=== PATIENT | male | born 1985 | race Caucasian/White ===

== ENCOUNTER 2019-10-22 21:41 | Observation (INO) | payer OTHER ==
[~2019-10-22] VITALS: Ht 170.2 cm; Wt 93.2 kg
[2019-10-22] MEDS ORDERED: [UNRECOGNIZED DRUG - REMARK] (21:51)
[2019-10-22 22:24] LABS: BASOPHILS 0.3 % (0-2); EOSINOPHILS 2.6 % (0-7); HEMATOCRIT 37.1 % (42.0-54.0); HEMOGLOBIN 12.7 g/dL (13.5-17.5); IMMATURE GRANULOCYTES 0.1 % (0-5); LYMPHOCYTES 25.6 % (15-50); MCH 28.8 pg (26.0-34.0); MCHC 34.2 g/dL (31.0-37.0); MCV 84.1 fL (80.0-100.0); MONOCYTES 7.5 % (2-11); NEUTROPHILS 63.9 % (40-80); PLATELET COUNT 242 10x3/uL (130-400); RBC 4.41 10x6/uL (4.20-6.10); WBC 9.3 10x3/uL (4.8-10.8)
[2019-10-22 22:31] LABS: CALC OSMOLALITY 285 mosm/kg (275-300); CALCIUM 8.7 mg/dL (8.5-10.1); CARBON DIOXIDE 27.1 mmol/L (21.0-32.0); CHLORIDE - SERUM 106 mmol/L (98-107); GLUCOSE 130 mg/dL (74-106); POTASSIUM - SERUM 3.3 mmol/L (3.5-5.1); SODIUM 142 mmol/L (136-145); UREA NITROGEN 15 mg/dL (7-18); eGFR NON AFRICAN AMERICAN 90 mL/min (90-120)
[2019-10-22 22:36] LABS: ALBUMIN 3.8 g/dL (3.4-5.0); ALKALINE PHOSPHATASE 85 U/L (30-120); ALT (SGPT) 50 U/L (10-68); BILIRUBIN - TOTAL 0.39 mg/dL (0.2-1.3)
[2019-10-22 23:38] LABS: APTT 23.6 SECONDS (22.8-39.4); INR 0.98 (0.85-1.17); PROTIME 12.9 SECONDS (11.6-15.0)
[2019-10-23 02:06] LABS: BILIRUBIN NEGATIVE (NEGATIVE); GLUCOSE NEGATIVE (NEGATIVE); KETONE SMALL mg/dL (NEGATIVE); NITRITE NEGATIVE (NEGATIVE); SPECIFIC GRAVITY 1.025 (1.005-1.020); UROBILINOGEN NORMAL (NORMAL)
[2019-10-23 02:08] LABS: UDS - AMPHET NEGATIVE QUAL (NEGATIVE); UDS - BARB NEGATIVE QUAL (NEGATIVE); UDS - BENZO NEGATIVE QUAL (NEGATIVE); UDS - COCAINE NEGATIVE QUAL (NEGATIVE); UDS - OPIATE POSITIVE QUAL (NEGATIVE); UDS - PCP NEGATIVE QUAL (NEGATIVE); UDS - THC NEGATIVE QUAL (NEGATIVE)
--- NOTE | 2019-10-23 03:05 | NUR ---
RECIEVED TO FLOOR, ACCOMPANIED BY STAFF AND COWORKER. A&O X 4, AMBULATES INDEPENDENTLY. REPORTS PAIN OF 8/10. VS STABLE. DENIES NEEDS AT THIS TIME, WILL CONTINUE TO MONITOR.
[2019-10-23 03:15] VITALS: BP 139/77; BMI 32.2
[2019-10-23 04:00] VITALS: BP 139/77
--- NOTE | 2019-10-23 07:36 | NUR ---
ALERT AND ORIENTED. LUNGS CLEAR BILATERALLY. HEART SOUNDS S1 AND S2 HEARD IN ALL MADRIGAL. BOWEL SOUNDS ACTIVE X 4. SKIN INTACT WITHOUT REDNESS. IV TO LEFT HAND PATENT WITHOUT REDNESS. MENDOZA PATENT. DENIES NEEDS. BED LOW. CALL BARRY AND PERSONAL ITEMS IN REACH. WILL CONTINUE TO MONITOR.
[2019-10-23 08:31] VITALS: Ht 170.2 cm; Wt 93.2 kg
[2019-10-23 09:11] VITALS: BP 131/77
--- NOTE | 2019-10-23 09:14 | NUR ---
SPOKE WITH PATIENT ABOUT PROCEDURE TODAY WITH DR SEAY. 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 SPOKE WITH DR SEAY WHO STATES OK WITH PATIENT HAVING PROCEDURE CLOSER TO HOME AND TO TALK TO PRIMARY ADMITTING DOCTOR.
[2019-10-23 09:50] LABS: BASOPHILS 0.3 % (0-2); EOSINOPHILS 3.9 % (0-7); HEMATOCRIT 36.6 % (42.0-54.0); IMMATURE GRANULOCYTES 0.2 % (0-5); LYMPHOCYTES 30.3 % (15-50); MCH 28.4 pg (26.0-34.0); MCHC 32.8 g/dL (31.0-37.0); NEUTROPHILS 56.3 % (40-80); PLATELET COUNT 216 10x3/uL (130-400); RBC 4.23 10x6/uL (4.20-6.10); RDW 14.3 % (11.5-14.5)
[2019-10-23 10:02] LABS: MCV 86.5 fL (80.0-100.0); WBC 6.3 10x3/uL (4.8-10.8)
--- NOTE | 2019-10-23 11:00 | NUR ---
CONSENTS OBTAINED FOR PROCEDURE.
[2019-10-23] MEDS ORDERED: HYDROCODON-ACE1 EAC7 PO ×3 (11:48→11:52)
[2019-10-23] MEDS ORDERED: CYCLOBENZAPRINE10 MG PO (11:49)
[2019-10-23] MEDS ORDERED: LIDOCAINE 5 % O35 GM TOPICAL (11:49)
[2019-10-23] MEDS ORDERED: MIRALAX17 GM PO (11:49)
--- NOTE | 2019-10-23 13:07 | NUR ---
DISCHARGE EDUCATION PROVIDED BOTH WRITTEN AND VERBAL. VERBALIZED UNDERSTANDING. DENIES QUESTIONS. IV REMOVED FROM LEFT HAND WITH TIP INTACT. MENDOZA CATHETER REMOVED FOR DC WITHOUT DIFFICULTY. RX FOR NEW MEDICATIONS GIVEN TO PATIENT. WORK EXCUSE GIVEN TO PATIENT. NUMBER FOR [employer] SERVICE GIVEN TO PATIENT. STATES WILL CALL [facility] TO GET BACK TO [facility].
--- NOTE | 2019-10-23 13:21 | NUR ---
PATIENT DC HOME WITH ALL BELONINGS AND TUBE OF LIDOCAINE CREAM FROM PHARMACY. REQUESTED TO WALK INSTEAD OF WC.
[2019-10-23 13:31] VITALS: BP 131/83
== END 2019-10-23 13:34 | disposition home or self-care (01) ==
LOC: D.ER 21:41 → D.MS 10-23 01:31 → OBSVTIME 10-23 01:31 → D.MS 10-23 13:34
PROVIDERS: Emergency Medicine; Family Medicine; ADMIT Family Medicine; ATTEND Family Medicine
DX: K64.3 Fourth degree hemorrhoids (principal); K92.1 Melena; F17.200 Nicotine dependence, unspecified, uncomplicated